=== PATIENT | male | born 2000 ===

== ENCOUNTER 2021-10-07 20:23 | Emergency (ER) | payer SELFPAY ==
[2021-10-07 20:36] VITALS: BP 122/80
== END 2021-10-08 00:20 | disposition left against medical advice (07) ==
LOC: ED 20:23
DX: R19.7 Diarrhea, unspecified (principal); R11.10 Vomiting, unspecified; Z53.21 Procedure and treatment not carried out due to patient leaving prior to being seen by health care provider